=== PATIENT | female | born 1985 | race American Indian/Alaskan Native ===

== ENCOUNTER 2017-11-27 12:32 | Emergency (ER) | payer SELFPAY ==
[2017-11-27] MEDS ORDERED: TYLENOL ONE (13:59)
[2017-11-27 14:06] VITALS: BP 159/94
[2017-11-27] MEDS ORDERED: TYLENOL PO ONE (14:07)
--- NOTE | 2017-11-27 19:21 | Emergency Department Report ---
ED General Adult HPI - General Chief complaint: Pain General Stated complaint: SIDE EPAIN/SOB Time Seen by Provider: 11/27/17 19:13 Source: patient Mode of arrival: Ambulatory Limitations: No Limitations - History of Present Illness Initial comments: 32-year-old -[place] female presents to the emergency room for left sided rib pain. She was lying down her significant other pulled towards him and at that time she felt something pop in her left ribs. Patient reports since then she's been nauseated and had some mild shortness of breathing. She reports no past medical history currently takes no medications on a daily basis and has no known drug allergies. Location: chest Radiation: non-radiation Severity scale (0 -10): 7 Quality: stabbing Consistency: constant Improves with: none Worsens with: movement, other (deep breathing) Associated Symptoms: nausea/vomiting, shortness of breath Treatments Prior to Arrival: none - Related Data Previous Rx's Medication Instructions Recorded Last Taken Type Ibuprofen [Motrin 800 MG tab] 800 mg PO Q8HR PRN #30 tablet 11/27/17 Unknown Rx Allergies Allergy/AdvReac Type Severity Reaction Status Date / Time No Known Allergies Allergy Unverified 11/27/17 14:06 ED Review of Systems ROS: Stated complaint: SIDE EPAIN/SOB Other details as noted in HPI Constitutional: denies: chills, fever Eyes: denies: eye pain, eye discharge, vision change ENT: denies: ear pain, throat pain Respiratory: shortness of breath Cardiovascular: other (left-sided rib pain) Endocrine: no symptoms reported Gastrointestinal: nausea. denies: abdominal pain, vomiting Genitourinary: denies: urgency, dysuria, discharge Musculoskeletal: denies: back pain, joint swelling, arthralgia Skin: denies: rash, lesions Neurological: as per HPI Psychiatric: denies: anxiety, depression Hematological/Lymphatic: denies: easy bleeding, easy bruising ED Past Medical Hx - Past Medical History Previous Medical History?: No - Surgical History Additional Surgical History: - Social History Smoking Status: Never Smoker Substance Use Type: None - Medications Home Medications: Home Medications Medication Instructions Recorded Confirmed Last Taken Type Ibuprofen [Motrin 800 MG tab] 800 mg PO Q8HR PRN #30 tablet 11/27/17 Unknown Rx ED Physical Exam - General Limitations: No Limitations General appearance: alert, in no apparent distress - Head Head exam: Present: atraumatic, normocephalic - Eye Eye exam: Present: normal appearance - Respiratory Respiratory exam: Present: normal lung sounds bilaterally, chest wall tenderness (left rib pain) - Cardiovascular Cardiovascular Exam: Present: regular rate - GI/Abdominal GI/Abdominal exam: Present: soft, normal bowel sounds ED Course Vital Signs 11/27/17 11/27/17 14:02 14:08 Temperature 98.6 F Pulse Rate 88 Respiratory 18 18 Rate Blood Pressure 159/94 O2 Sat by Pulse 100 Oximetry ED Medical Decision Making - Radiology Data Radiology results: report reviewed, image reviewed FINAL REPORT PROCEDURE: XR RIBS UNI W PA CHEST 3+V LT TECHNIQUE: RIGHT rib radiographs, 3 views of the ribs, including PA chest. HISTORY: left rib pain COMPARISON: No prior studies are available for comparison. FINDINGS: Heart: Normal. Mediastinum/Vessels: Normal. Lungs: Normal. Pleural space: Normal. Pneumothorax: None. Bony thorax/ribs: No significant abnormality. IMPRESSION: Normal Examination. Transcribed By: [facility] [place] Dictated By: RAMESH MUNOZ Electronically Authenticated By: RAMESH MUNOZ Signed Date/Time: 11/27/172019 DD/ 19 TD/TT: 11/27/172019 - Medical Decision Making She has been evaluated by this provider fast track. Discussed the patient we' ll do a chest x-ray with rib series and left side. Discussed the patient we'll give her ibuprofen for pain. Critical care attestation.: If time is entered above; I have spent that time in minutes in the direct care of this critically ill patient, excluding procedure time. ED Disposition Clinical Impression: Rib pain on left side Disposition: DC-01 TO HOME OR SELFCARE Is pt being admited?: No Does the pt Need Aspirin: No Condition: Stable Instructions: Chest Pain (ED) Additional Instructions: Please take ibuprofen for pain. If symptoms persist or gets worse follow-up with her primary care provider. Prescriptions: Ibuprofen [Motrin 800 MG tab] 800 mg PO Q8HR PRN #30 tablet PRN Reason: Pain Referrals: PRIMARY CARE, [Primary Care Provider] - 3-5 Days Forms: Work/School Release Form(ED), Accompanied Note
[2017-11-27 19:41] LABS: HCG Qualitative,Urine Negative (Negative)
[2017-11-27] MEDS ORDERED: MOTRIN PO ONE (19:49)
--- NOTE | 2017-11-27 20:24 | XRay Report ---
FINAL REPORT PROCEDURE: XR RIBS UNI W PA CHEST 3+V LT TECHNIQUE: RIGHT rib radiographs, 3 views of the ribs, including PA chest. HISTORY: left rib pain COMPARISON: No prior studies are available for comparison. FINDINGS: Heart: Normal. Mediastinum/Vessels: Normal. Lungs: Normal. Pleural space: Normal. Pneumothorax: None. Bony thorax/ribs: No significant abnormality. IMPRESSION: Normal Examination.
== END 2017-11-27 21:22 | disposition home or self-care (01) ==
LOC: ED 12:32
DX: R07.81 Pleurodynia (principal); R11.2 Nausea with vomiting, unspecified
CPT/HCPCS: 81025; 99284